=== PATIENT | male | born 1955 | race Caucasian/White ===

== ENCOUNTER → 2016-08-08 | Outpatient (CLI) | payer BC | END | disposition home or self-care (01) | LOC: CDC 10:23 | DX: I44.0 Atrioventricular block, first degree (principal); R94.31 Abnormal electrocardiogram [ECG] [EKG]; G56.22 Lesion of ulnar nerve, left upper limb; G56.02 Carpal tunnel syndrome, left upper limb | CPT/HCPCS: 93000 ==